=== PATIENT | female | born 1975 | race Caucasian/White ===

== ENCOUNTER 2018-01-31 15:25 | Outpatient (CLI) | payer BC, SELFPAY ==
[2018-01-31 17:44] LABS: Cholesterol 211 mg/dL (50-200); Glucose 87 mg/dL (70-100); HDL Cholesterol 66 mg/dL (40-60); LDL CHOLESTEROL 132 mg/dL (<100); Triglyceride 94 mg/dL (30-150)
== END 2018-01-31 15:45 ==
PROVIDERS: Visit Provider Nurse Practitioner Women's Health
DX: Z83.42 Family history of familial hypercholesterolemia (principal); Z13.220 Encounter for screening for lipoid disorders
CPT/HCPCS: 36415; 80061; 82947; 83721; 85025

== ENCOUNTER 2018-01-31 15:45 | Outpatient (REF) | payer BC, SELFPAY ==
--- NOTE | 2018-01-31 15:00 | PAPFT_PTH ---
PATIENT: PURA NEIL LOC: [facility] U#:[id number] AGE/SX: 42/F ROOM: RE01/31/[address]: Diane Berg NP : 1975 BED: DIS: 01/31/2018 SPEC #: [id number] RECD: 01/31/18 17:17 STATUS: JESUS BOTELLO #: [id number] CAMMY: 01/31/18 15:[address]: Diane Berg NP DEPT: [facility] Cytology RECD BY: Ambreen Szymanski ENTERED: 01/31/18 17:17 SP TYPE: PAPFT IZABELA DR: None Tissues: 1 - CX/ENDOCX FOR PAP SMEARS Procedures: PAP THIN PREP/[facility] Screening HPV DNA PROBE Comments: [id number]
== END 2018-01-31 16:05 ==
LOC: LBN 15:45
PROVIDERS: Visit Provider Nurse Practitioner Women's Health
DX: Z12.4 Encounter for screening for malignant neoplasm of cervix (principal); Z11.51 Encounter for screening for human papillomavirus (HPV)
CPT/HCPCS: 88142; 87624

== ENCOUNTER 2018-02-21 00:45 | Outpatient (CLI) | payer BC, SELFPAY ==
--- NOTE | 2018-02-21 13:23 | DI.MAMMO_ITS ---
SYMPTOM/DIAGNOSIS: SCREENING, Z12.31 MAMMOGRAMS: Mammograms were interpreted according to the usual protocol including computer analysis with CAD system, tomosynthesis and C view imaging. No priors extant at the time of this interpretation. Breast density, category D. No masses or microcalcifications are seen. There is nothing to suggest malignancy. IMPRESSION: Negative mammogram. Routine screening is recommended. Category 1. MQSA ASSESSMENT OF FINDINGS: Negative. Category 1. Patient will receive a letter notifying them of these results. BI-RADS category D. The breasts are extremely dense, which lowers the sensitivity of mammography.
== END 2018-02-21 01:05 ==
PROVIDERS: Visit Provider Nurse Practitioner Women's Health
DX: Z12.31 Encounter for screening mammogram for malignant neoplasm of breast (principal)
CPT/HCPCS: 77063; 77067

== ENCOUNTER 2018-08-04 08:09 | Outpatient (REF) | payer BC, SELFPAY ==
[2018-08-04 13:31] LABS: Cholesterol 170 mg/dL (50-200); HDL Cholesterol 58 mg/dL (40-60); LDL CHOLESTEROL 95 mg/dL (<100); Triglyceride 106 mg/dL (30-150)
== END 2018-08-04 08:29 ==
LOC: NCHCN 08:09
PROVIDERS: PCP Nurse Practitioner; Visit Provider Nurse Practitioner
DX: E78.5 Hyperlipidemia, unspecified (principal)
CPT/HCPCS: 80061; 83721

== ENCOUNTER 2019-04-21 02:54 | Outpatient (CLI) | payer BC, SELFPAY ==
--- NOTE | 2019-04-21 10:54 | DI.MAMMO_ITS ---
EXAM: MG MAMMO SCREENING CLINICAL HISTORY: screening TECHNIQUE: Bilateral full field digital CC and MLO mammographic images were obtained with 3D tomosyn thesis and utilizing computer aided detection (CAD). COMPARISON: Available for comparison. FINDINGS: Masses/Architectural Distortion: None seen. Microcalcifications: No suspicious pleomorphic-type are seen. Skin Thickening/Nipple Retraction: None. IMPRESSION: 1. No significant interval change with no specific features of malignancy noted. 2. Unless there is more urgent need, screening mammography is recommended, as per [employer] guidelines. ACR BI-RAD Category- 1 Negative Breast Density - Category D - Extremely dense The mammogram demonstrates the patient's breast tissue is dense. Dense breast tissue is very common a nd is not abnormal but dense breast tissue can make it harder to find cancer on a mammogram. Also, de nse breast tissue may increase their breast cancer risk. This information about the result of the [facility] mogram report was provided to the patient to raise their awareness. Use this report when you speak wi th the patient about their risks for breast cancer, which includes their family history. At that time , you may recommend for more screening tests (Ultrasound or MRI) as they might be useful based on the ir risk. A negative radiographic report should not delay biopsy if a dominant or clinically suspicious mass is present. Up to ten percent of cancers are not identified on mammography. A negative report may reinforce clinical impression. Adenosis and dense breasts may obscure an underlying neoplasm. False positive reports average 6 to 10%. Patient will receive a letter notifying them of these results.
== END 2019-04-21 03:14 ==
PROVIDERS: PCP Nurse Practitioner; Visit Provider Nurse Practitioner Women's Health
DX: Z12.31 Encounter for screening mammogram for malignant neoplasm of breast (principal)
CPT/HCPCS: 77063; 77067